=== PATIENT | male | born 1975 | race Caucasian/White ===

== ENCOUNTER → 2016-09-02 | Outpatient (REF) | payer OTHER ==
[2016-09-02 12:24] LABS: ALBUMIN 4.2 GM/DL (3.2-5.2); ALBUMIN/GLOBULIN RATIO 1.31 (1.00-1.93); ALKALINE PHOSPHATASE 71 U/L (45-117); ALT/SGPT 33 U/L (12-78); ANION GAP 13 MEQ/L (8-16); AST/SGOT 21 U/L (15-37); BILIRUBIN,TOTAL 0.8 MG/DL (0.2-1.0); BLOOD UREA NITROGEN 12 MG/DL (7-18); CALCIUM LEVEL 9.1 MG/DL (8.5-10.1); CARBON DIOXIDE LEVEL 25 MEQ/L (21-32); CHLORIDE LEVEL 102 MEQ/L (98-107); CHOLESTEROL LEVEL 113 MG/DL (<200); CREATININE FOR GFR 0.95 MG/DL (0.70-1.30); GLOMERULAR FILTRATION RATE > 60.0 (>60); GLUCOSE, FASTING 100 MG/DL (70-105); POTASSIUM SERUM 3.7 MEQ/L (3.5-5.1); SODIUM LEVEL 140 MEQ/L (136-145); TOTAL PROTEIN 7.4 GM/DL (6.4-8.2); TRIGLYCERIDES LEVEL 218 MG/DL (<150)
== END ==
LOC: M SFHCPLAZ 07:53
PROVIDERS: ATTEND Physician Assistant
DX: R73.9 Hyperglycemia, unspecified (principal); E78.4 Other hyperlipidemia

== ENCOUNTER → 2017-09-23 | Outpatient (REF) | payer OTHER ==
[2017-09-23 11:04] LABS: BASO # 0.1 10^3/uL (0.0-0.2); BASO % 0.6 % (0.0-1.0); EOS # 0.3 10^3/uL (0.0-0.50); EOS % 2.9 % (0.0-3.0); HEMATOCRIT 47.3 % (42.0-52.0); HEMOGLOBIN 15.7 g/dl (14.0-18.0); IMMATURE GRANULOCYTE % 0.8 % (0-3.0); LYMPH % 21.6 % (24.0-44.0); MEAN CORPUSCULAR HEMOGLOBIN 26.8 pg (27.0-33.0); MEAN CORPUSCULAR HGB CONC 33.2 g/dl (32.0-36.5); MEAN CORPUSCULAR VOLUME 80.7 fl (80.0-96.0); MONO # 0.8 10^3/uL (0.0-0.8); MONO % 8.2 % (0.0-5.0); NEUTROPHILS # 6.2 10^3/uL (1.8-7.7); NEUTROPHILS % 65.9 % (36.0-66.0); PLATELET COUNT, AUTOMATED 268 10^3/uL (150-450); RED BLOOD COUNT 5.86 10^6/uL (4.30-6.10); RED CELL DISTRIBUTION WIDTH 13.6 % (11.5-14.5); WHITE BLOOD COUNT 9.3 10^3/uL (4.0-10.0)
[2017-09-23 11:13] LABS: ALBUMIN 4.3 GM/DL (3.2-5.2); ALBUMIN/GLOBULIN RATIO 1.43 (1.00-1.93); ALKALINE PHOSPHATASE 80 U/L (45-117); ALT/SGPT 48 U/L (12-78); ANION GAP 12 MEQ/L (8-16); AST/SGOT 29 U/L (7-37); BILIRUBIN,TOTAL 0.8 MG/DL (0.2-1.0); BLOOD UREA NITROGEN 13 MG/DL (7-18); CALCIUM LEVEL 9.4 MG/DL (8.5-10.1); CARBON DIOXIDE LEVEL 25 MEQ/L (21-32); CHLORIDE LEVEL 101 MEQ/L (98-107); CHOLESTEROL LEVEL 112 MG/DL (<200); CHOLESTEROL RISK RATIO 3.612 (<5); CREATININE FOR GFR 0.81 MG/DL (0.70-1.30); FREE T4 0.88 NG/DL (0.76-1.46); GLOMERULAR FILTRATION RATE > 60.0 (>60); GLUCOSE, FASTING 110 MG/DL (70-100); HDL CHOLESTEROL 31 MG/DL (>40); LDL CHOLESTEROL 34.2 MG/DL (<100); NON-HDL-C 81 MG/DL; POTASSIUM SERUM 3.7 MEQ/L (3.5-5.1); SODIUM LEVEL 138 MEQ/L (136-145); TOTAL PROTEIN 7.3 GM/DL (6.4-8.2); TRIGLYCERIDES LEVEL 234 MG/DL (<150)
[2017-09-23 11:29] LABS: ESTIMATED AVERAGE GLUCOSE 137 MG/DL (60-110); HEMOGLOBIN A1c 6.4 %
== END ==
LOC: M SFHCPLAZ 08:54
DX: E78.4 Other hyperlipidemia (principal); I10 Essential (primary) hypertension; R73.03 Prediabetes
CPT/HCPCS: 84443

== ENCOUNTER → 2017-09-29 | Outpatient (REF) | payer OTHER ==
[2017-09-29 16:14] LABS: MALB URINE SIEMENS 54.4 MG/L; MAU/CREAT RATIO 49.9 MCG/MG (0.0-30.0)
== END ==
LOC: M SFHCPLAZ 15:20
DX: R73.03 Prediabetes (principal)

== ENCOUNTER → 2018-01-03 | Outpatient (REF) | payer OTHER ==
[2018-01-03 19:51] LABS: ESTIMATED AVERAGE GLUCOSE 134 MG/DL (60-110); HEMOGLOBIN A1c 6.3 %
[2018-01-03 19:55] LABS: ANION GAP 10 MEQ/L (8-16); BLOOD UREA NITROGEN 19 MG/DL (7-18); CALCIUM LEVEL 9.7 MG/DL (8.5-10.1); CARBON DIOXIDE LEVEL 27 MEQ/L (21-32); CHLORIDE LEVEL 104 MEQ/L (98-107); CREATININE FOR GFR 1.05 MG/DL (0.70-1.30); GLOMERULAR FILTRATION RATE > 60.0 (>60); GLUCOSE, FASTING 109 MG/DL (70-100); POTASSIUM SERUM 3.9 MEQ/L (3.5-5.1); SODIUM LEVEL 141 MEQ/L (136-145)
[2018-01-03 20:41] LABS: MALB URINE SIEMENS 80.6 MG/L; MAU/CREAT RATIO 42.6 MCG/MG (0.0-30.0)
== END ==
LOC: M SFHCPLAZ 15:06
DX: R73.03 Prediabetes (principal); I10 Essential (primary) hypertension

== ENCOUNTER → 2018-04-06 | Outpatient (REF) | payer OTHER ==
[2018-04-06 18:52] LABS: ESTIMATED AVERAGE GLUCOSE 131 MG/DL (60-110); HEMOGLOBIN A1c 6.2 %
== END ==
LOC: M SFHCPLAZ 15:03
DX: R73.03 Prediabetes (principal)

== ENCOUNTER → 2018-10-20 | Outpatient (REF) | payer OTHER ==
[2018-10-20 14:11] LABS: HEMATOCRIT 48.1 % (42.0-52.0); HEMOGLOBIN 15.8 g/dl (13.5-17.5); MEAN CORPUSCULAR HEMOGLOBIN 26.8 pg (27.0-33.0); MEAN CORPUSCULAR HGB CONC 32.8 g/dl (32.0-36.5); MEAN CORPUSCULAR VOLUME 81.5 fl (80.0-96.0); PLATELET COUNT, AUTOMATED 303 10^3/uL (150-450); WHITE BLOOD COUNT 10.3 10^3/uL (4.0-10.0)
[2018-10-20 14:19] LABS: ALBUMIN 4.4 GM/DL (3.2-5.2); ALT/SGPT 50 U/L (12-78); BILIRUBIN,TOTAL 0.7 MG/DL (0.2-1.0); BLOOD UREA NITROGEN 18 MG/DL (7-18); CALCIUM LEVEL 9.5 MG/DL (8.5-10.1); CARBON DIOXIDE LEVEL 26 MEQ/L (21-32); CHLORIDE LEVEL 101 MEQ/L (98-107); CHOLESTEROL LEVEL 124 MG/DL (<200); CHOLESTEROL RISK RATIO 3.875 (<5); GLOMERULAR FILTRATION RATE > 60.0 (>60); GLUCOSE, FASTING 133 MG/DL (70-100); HDL CHOLESTEROL 32 MG/DL (>40); LDL CHOLESTEROL 58 MG/DL (<100); NON-HDL-C 92 MG/DL; POTASSIUM SERUM 3.8 MEQ/L (3.5-5.1); SODIUM LEVEL 137 MEQ/L (136-145); TRIGLYCERIDES LEVEL 171 MG/DL (<150); VITAMIN B12 LEVEL 207 PG/ML (247-911)
[2018-10-20 16:27] LABS: HEMOGLOBIN A1c 6.9 %
== END ==
LOC: M LABDRAW1 13:32
PROVIDERS: ATTEND Physician Assistant
DX: R73.03 Prediabetes (principal); E78.49 Other hyperlipidemia

== ENCOUNTER → 2019-05-16 | Outpatient (REF) | payer OTHER ==
[2019-05-16 18:50] LABS: ALBUMIN 4.3 GM/DL (3.2-5.2); ALT/SGPT 69 U/L (12-78); BILIRUBIN,TOTAL 0.5 MG/DL (0.2-1.0); BLOOD UREA NITROGEN 18 MG/DL (7-18); CARBON DIOXIDE LEVEL 26 MEQ/L (21-32); CHLORIDE LEVEL 101 MEQ/L (98-107); CREATININE FOR GFR 0.92 MG/DL (0.70-1.30); GLOMERULAR FILTRATION RATE > 60.0 (>60); GLUCOSE, FASTING 138 MG/DL (70-100); POTASSIUM SERUM 3.7 MEQ/L (3.5-5.1); SODIUM LEVEL 136 MEQ/L (136-145); TOTAL PROTEIN 7.9 GM/DL (6.4-8.2)
[2019-05-16 18:56] LABS: HEMOGLOBIN A1c 7.6 %
== END ==
LOC: M SFHCPLAZ 15:29
PROVIDERS: ATTEND Nurse Practitioner Adult Health
DX: I10 Essential (primary) hypertension (principal)

== ENCOUNTER → 2019-10-14 | Outpatient (CLI) | payer OTHER | LOC: M SLEEP 20:00 | PROVIDERS: ATTEND Internal Medicine Pulmonary Disease | DX: G47.33 Obstructive sleep apnea (adult) (pediatric) (principal) ==

== ENCOUNTER 2020-04-12 20:49 | Inpatient (IN) | payer OTHER ==
[~2020-04-12] VITALS: Ht 182.9 cm; Wt 134.9 kg
[2020-04-12] MEDS ORDERED: KEFL500C17 PO (20:58)
[2020-04-12] MEDS ORDERED: IBUP80TA PO (20:58)
[2020-04-12] MEDS ORDERED: B-12100010 PO (20:58)
[2020-04-12] MEDS ORDERED: CHLO25TA PO (20:58)
[2020-04-12] MEDS ORDERED: IRBE150T7 PO (20:58)
[2020-04-12] MEDS ORDERED: CRES40TA PO (20:58)
[2020-04-12] MEDS ORDERED: GLIP5TAB20 PO (20:58)
[2020-04-12] MEDS ORDERED: NS 1,000 ML IV ONE (21:30)
[2020-04-12 21:51] LABS: VENOUS BASE EXCESS -4.7 (-2.0-2.0); VENOUS O2 SATURATION 97.7 % (60.0-80.0); VENOUS PARTIAL PRESSURE CO2 27.9 mmHg (38.0-50.0); VENOUS PARTIAL PRESSURE O2 96.2 mmHg (30.0-50.0); VENOUS PH 7.428 UNITS (7.330-7.430); VENOUS STANDARD HCO3 20.6 MEQ/L; VENOUS TOTAL CO2 18.9 MEQ/L (24.0-28.0)
[2020-04-12 22:11] LABS: BASO # 0.1 10^3/uL (0.0-0.2); BASO % 0.8 % (0.0-1.0); EOS # 0.2 10^3/uL (0.0-0.5); EOS % 1.3 % (0.0-3.0); HEMATOCRIT 43.5 % (42.0-52.0); HEMOGLOBIN 15.1 g/dl (13.5-17.5); LYMPH % 15.9 % (24.0-44.0); MEAN CORPUSCULAR HEMOGLOBIN 27.2 pg (27.0-33.0); MEAN CORPUSCULAR HGB CONC 34.7 g/dl (32.0-36.5); MEAN CORPUSCULAR VOLUME 78.4 fl (80.0-96.0); MONO # 0.9 10^3/uL (0.0-0.8); MONO % 7.4 % (0.0-5.0); NEUTROPHILS # 9.3 10^3/uL (1.5-8.5); NEUTROPHILS % 73.3 % (36.0-66.0); PLATELET COUNT, AUTOMATED 314 10^3/uL (150-450); RED BLOOD COUNT 5.55 10^6/uL (4.30-6.10); WHITE BLOOD COUNT 12.6 10^3/uL (4.0-10.0)
[2020-04-12 22:12] LABS: OSMOLALITY SERUM 300 MOSM/KG (275-295)
[2020-04-12 22:30] LABS: HEMOGLOBIN A1c 13.4 %
[2020-04-12 22:31] LABS: ACETONE/KETONE > 46.00 MG/DL (<2.81); BLOOD UREA NITROGEN 15 MG/DL (7-18); CALCIUM LEVEL 9.6 MG/DL (8.5-10.1); CARBON DIOXIDE LEVEL 19 MEQ/L (21-32); CHLORIDE LEVEL 91 MEQ/L (98-107); CREATININE FOR GFR 0.93 MG/DL (0.70-1.30); GLOMERULAR FILTRATION RATE > 60.0 (>60); GLUCOSE, FASTING 441 MG/DL (70-100); POTASSIUM SERUM 3.2 MEQ/L (3.5-5.1); SODIUM LEVEL 128 MEQ/L (136-145)
[2020-04-12] MEDS ORDERED: HumuLIN R (REGULAR) INSULIN (NovoLIN R) **100U/ML** PER UNIT IV STA (23:07)
[2020-04-12] MEDS ORDERED: POTASSIUM CHLORIDE 10 MEQ SR TABLET PO ONE (23:15)
[2020-04-13] MEDS ORDERED: HumaLOG INSULIN (NovoLOG) PER UNIT SC ONE (00:15)
[2020-04-13] MEDS ORDERED: ACETAMINOPHEN TAB 650MG DOSE (2X325MG) PO PRN (00:30)
[2020-04-13] MEDS ORDERED: GLUCAGON INJ 1MG VIAL SC PRN (00:30)
[2020-04-13] MEDS ORDERED: MAALOX 30 ML SUSP *UDC PO PRN (00:30)
[2020-04-13] MEDS ORDERED: MOM 30ML SUSPENSION UDC PO PRN (00:30)
[2020-04-13] MEDS ORDERED: GLUCOSE 4GM CHEW TABLET PO PRN (00:30)
[2020-04-13] MEDS ORDERED: POTASSIUM CHL PWD 20 MEQ PACKET PO ONE (00:30)
[2020-04-13] MEDS ORDERED: DEXTROSE 50% 50 ML SYRINGE IV PRN (00:30)
--- NOTE | 2020-04-13 00:53 | HPEPDOC ---
[facility] Medical History & Physical Date of Admission Apr 13, 2020 Date of Service: Apr 13, 2020 Primary Care Physician: Guerline Richard Attending Physician: EJ MEYER MD History and Physical TIME OF SERVICE: 125AM CHIEF COMPLAINT: high glucose HISTORY OF PRESENT ILLNESS: This 44 yr old M has been feeling thirsty and urinating a lot therefore he decided to check his serum glucose and noticed that it was about 325 which prompted him to come to the hospital for evaluation. He doesn't usually keep track of his serum glucose. He is on glipizide for DM and no longer takes metformin because of diarrhea. He denies having f/c/n/v/d or chest pain. He is also c/o a yeast infection and is on cephalexin for a pilonidal cysts which he has had for 2-3 weeks. He denies having any pain associated with the cyst and hasn't undergone I&D because cyst drained on its own. He has an appointment to f/u on the cyst on May 05. REVIEW OF SYSTEMS: 12 point review of systems negative except as listed in HPI PAST MEDICAL/ SURGICAL HISTORY: NIDDM Chronic HTN Dyslipidemia Obesity Appendectomy SOCIAL HISTORY: - tobacco / drinks occasionally (less than 1 drink per month) / - recreational drugs FAMILY HISTORY: Prostate cancer Diabetes CAD Lung cancer ALLERGIES: Please see below. HOME MEDICATIONS: Please see below. PHYSICAL EXAMINATION: Vital Signs Date Time Temp Pulse Resp B/P (MAP) Pulse Ox O2 Delivery O2 Flow Rate FiO2 04/12/20 20:50 98.0 136 16 141/86 (104) 98 04/12/20 22:15 Room Air GEN: obese / well developed/ NAD INTEGUMENT: not flushed/ not jaundice HEENT: lips acyanotic /mucus membranes dry and pink CVS: RRR/NMRG LUNGS: able to speak full sentences without stopping to take a breath / no coughing / lungs are clear to auscultation bilaterally on room air ABDOMEN: Contour (obese MSK/EXTREMITIES: NCAT / range of motion intact in all 4 extremities NEURO: CN 2-12 are grossly intact / speech is not dysarthric PSYCH: alert and oriented to person place and time/ able to understand and follow all commands LABORATORY DATA: 04/12/20 21:39 04/12/20 21:36: Bedside Glucose (Misc Panel) 469H 04/12/20 21:39: Immature Granulocyte % (Auto) 1.3, Neutrophils (%) (Auto) 73.3H, Lymphocytes (%) (Auto) 15.9L, Monocytes (%) (Auto) 7.4H, Eosinophils (%) (Auto) 1.3, Basophils (%) (Auto) 0.8, Neutrophils # (Auto) 9.3H, Lymphocytes # (Auto) 2.0, Monocytes # (Auto) 0.9H, Eosinophils # (Auto) 0.2, Basophils # (Auto) 0.1, Nucleated Red Blood Cells % (auto) 0.0, Blood Gas Bicarbonate Standard 20.6, Venous Blood pH 7.428, Venous Blood Partial Pressure CO2 27.9L, Venous Blood Partial Pressure O2 96.2H, Venous Blood Total Carbon Dioxide 18.9L, Venous Blood HCO3 18.0L, Venous Blood Oxygen Saturation 97.7H, Venous Blood Base Excess -4.7L, Anion Gap 18H, Glomerular Filtration Rate > 60.0, Estimated Mean Plasma Glucose 338H, Hemoglobin A1c 13.4, Osmolality 300H, Calcium Level 9.6, B-Hydroxybutyrate > 46.00H 04/12/20 21:56: Urine Color STRAW, Urine Appearance CLEAR, Urine pH 5.0, Urine Specific [place] 1.027, Urine Protein 1+H, Urine Glucose (UA) 3+H, Urine Ketones 2+H, Urine Blood 1+H, Urine Nitrite NEGATIVE, Urine Bilirubin NEGATIVE, Urine Urobilinogen 0.2, Urine Leukocyte Esterase NEGATIVE, Urine WBC (Auto) 1, Urine RBC (Auto) 7H, Urine Hyaline Casts (Auto) 0, Urine Bacteria (Auto) NEGATIVE, Urine Squamous Epithelial Cells 0, Urine Sperm (Auto) 04/12/20 22:41: Bedside Glucose (Misc Panel) 415H 04/12/20 23:53: Bedside Glucose (Misc Panel) 369H IMAGING: n/a MICROBIOLOGY: blood cx pending ASSESSMENT: is a 44 yr old w a hx of DM2 (A1C 13.4%), HTN, Dyslipidemia, and Obesity who will be admitted for management of uncontrolled DM. PLAN: 1. Uncontrolled DM Despite having a serum glucose >250 and BHB, he doesn't meet DKA criteria because his pH >7.30. He is not in HHS Since his A1C is >8.5% he should be started on long and short acting insulin Plan: admit to PCU / f/u repeat BMP, Mag, Phosph, and lipase / c/w IVF / d iabetic diet / f/u accuchecks Q4H / hypoglycemia protocol / sliding scale insulin / hold oral anti-glycemics / based on his weight of 133kg he should be started on 33 units of long acting insulin daily along with 33 units of short acting insulin divided 3 times a day with his meals, since he is insulin naive I will order 21 units of levemir (long acting) daily + 7 units of lispro w meals 3 times a day, the day time team can titrate his insulin as needed / he will also need education on how to inject insulin before discharge 2. Reactive SIRS vs Sepsis 2/2 ? SIRS criteria include tachycardia and leukocytosis UA and chest xray are unrevealing Plan: f/u lactic acid, and blood cx 3. Pilonidal Cysts Plan: switch from PO cephalexin to IV clindamycin & f/u wound cx 4. Yeast infection Plan: topical nystatin 5. Chronic HTN Plan: c/w Irbesartan and chlorthalidone 6. Dyslipidemia Plan: rosuvastatin 7. Class III Obesity BMI of 40 complicates care Since the patients BMI >35 with co-existing DM s/he is a candidate for bariatric surgery Plan: the pt can f/u w his or her PCP for sleep apnea screening, traffic analyst consult & referral to a Bariatric Surgeon / recommend cardiovascular exercise for 40 min 4-5 days a week DVT PROPHYLAXIS: lovenox DISPOSITION: likely home after more than 2 midnight's stay Home Medications Scheduled Cephalexin (Keflex) 500 Mg Capsule, 1,000 MG PO BID STARTED 04/08/20 X 10 DAYS Chlorthalidone (Chlorthalidone) 25 Mg Tablet, 25 MG PO DAILY Cyanocobalamin (Vitamin B-12) (Vitamin B-12) 1,000 Mcg Capsule, 1,000 MCG PO DAILY Glipizide (Glipizide ER) 5 Mg Tab.er.24, 5 MG PO DAILY Ibuprofen (Ibuprofen) 800 Mg Tablet, 800 MG PO TID for pain Irbesartan (Irbesartan) 150 Mg Tablet, 150 MG PO DAILY Rosuvastatin Calcium (Crestor) 40 Mg Tablet, 40 MG PO DAILY Allergies Coded Allergies: No Known Allergies (Verified , 01/14/03) A-FIB/CHADSVASC A-FIB History Current/History of A-Fib/PAF?: No Current PO Anticoag Therapy: No EJ MEYER MD Apr 13, 2020 00:53
[2020-04-13] MEDS: HumaLOG INSULIN (NovoLOG) PER UNIT SC SCH ×6 (01:31→20:27)
[2020-04-13] MEDS ORDERED: NYSTATIN 100,000 UNITS/GM TOPICAL PWD 15 GM TOP PRN (02:00)
[2020-04-13 02:19] LABS: BLOOD UREA NITROGEN 13 MG/DL (7-18); CALCIUM LEVEL 8.9 MG/DL (8.5-10.1); CARBON DIOXIDE LEVEL 22 MEQ/L (21-32); CHLORIDE LEVEL 97 MEQ/L (98-107); CREATININE FOR GFR 0.84 MG/DL (0.70-1.30); GLOMERULAR FILTRATION RATE > 60.0 (>60); GLUCOSE, FASTING 319 MG/DL (70-100); LIPASE 138 U/L (73-393); MAGNESIUM LEVEL 1.8 MG/DL (1.8-2.4); PHOSPHORUS LEVEL 2.8 MG/DL (2.5-4.9); POTASSIUM SERUM 2.9 MEQ/L (3.5-5.1); SODIUM LEVEL 134 MEQ/L (136-145)
[2020-04-13 02:20] VITALS: BP 126/72
[2020-04-13] MEDS: NS 1,000 ML IV SCH ×4 (02:30→17:22)
[2020-04-13] MEDS: CLINDAMYCIN 900 MG in IV 1 EA IV SCH ×2 (02:48→09:13)
[2020-04-13] MEDS: POTASSIUM CHLORIDE 10 MEQ SR TABLET PO SCH ×2 (03:49→04:43)
[2020-04-13 04:00] VITALS: BP 137/57
--- NOTE | 2020-04-13 05:54 | ECGEPIP ---
[facility] - ED Test Date: 2020-04-12 Pat Name: SARAH HARRIS Department: Room: - Gender: Male Feather Baler: ADENIKE : 1975 Requested By: NAVJOT Shepherd Order Number: [id number] Reading MD: Kevin Quinones Measurements Intervals [place] Rate: 123 P: 45 W[place]: 145 QRS: -12 QRSD: 103 T: 28 QT: 378 QTc: 543 Interpretive Statements SINUS TACHYCARDIA INDETERMINATE AXIS PATTERN CONSISTENT WITH PULMONARY DISEASE POOR R WAVE PROGRESSION MODERATE INTRAVENTRICULAR CONDUCTION DELAY NO PRIORS FOR COMPARISON Electronically Signed on 04-13-2020 5:53:38 EDT by Kevin Quinones
[2020-04-13 06:32] LABS: BASO # 0.1 10^3/uL (0.0-0.2); BASO % 0.7 % (0.0-1.0); EOS # 0.4 10^3/uL (0.0-0.5); EOS % 3.8 % (0.0-3.0); HEMATOCRIT 39.8 % (42.0-52.0); HEMOGLOBIN 13.6 g/dl (13.5-17.5); LYMPH # 2.5 10^3/uL (1.5-5.0); LYMPH % 24.8 % (24.0-44.0); MEAN CORPUSCULAR HEMOGLOBIN 27.2 pg (27.0-33.0); MEAN CORPUSCULAR HGB CONC 34.2 g/dl (32.0-36.5); MEAN CORPUSCULAR VOLUME 79.6 fl (80.0-96.0); MONO # 0.8 10^3/uL (0.0-0.8); MONO % 8.2 % (0.0-5.0); NEUTROPHILS # 6.3 10^3/uL (1.5-8.5); NEUTROPHILS % 61.5 % (36.0-66.0); PLATELET COUNT, AUTOMATED 255 10^3/uL (150-450); WHITE BLOOD COUNT 10.2 10^3/uL (4.0-10.0)
[2020-04-13 07:14] LABS: ALBUMIN 3.1 GM/DL (3.2-5.2); ALT/SGPT 29 U/L (12-78); BILIRUBIN,TOTAL 0.4 MG/DL (0.2-1.0); BLOOD UREA NITROGEN 11 MG/DL (7-18); CALCIUM LEVEL 8.6 MG/DL (8.5-10.1); CARBON DIOXIDE LEVEL 26 MEQ/L (21-32); CHLORIDE LEVEL 99 MEQ/L (98-107); CREATININE FOR GFR 0.78 MG/DL (0.70-1.30); GLOMERULAR FILTRATION RATE > 60.0 (>60); GLUCOSE, FASTING 249 MG/DL (70-100); POTASSIUM SERUM 2.9 MEQ/L (3.5-5.1); SODIUM LEVEL 134 MEQ/L (136-145); TOTAL PROTEIN 6.6 GM/DL (6.4-8.2)
[2020-04-13 08:00] VITALS: BP 133/74
[2020-04-13] MEDS ORDERED: HumaLOG INSULIN (NovoLOG) PER UNIT SC SCH (08:00)
[2020-04-13] MEDS: ROSUVASTATIN 10 MG TAB (CRESTOR) PO SCH (08:17)
[2020-04-13] MEDS: ENOXAPARIN 40MG/0.4ML SYRINGE (J1650 PER 10MG) SC SCH (08:19)
[2020-04-13] MEDS: IRBESARTAN 150MG TAB PO SCH (08:21)
[2020-04-13] MEDS ORDERED: glipiZIDE XL 5 MG TABCR PO SCH (09:00)
[2020-04-13] MEDS ORDERED: CHLORTHALIDONE 25 MG TAB PO SCH (09:00)
[2020-04-13] MEDS ORDERED: LEVEMIR (INSULIN DETEMIR) 1 UNITS/0.01ML SC SCH (09:00)
[2020-04-13] MEDS ORDERED: POTASSIUM CHLORIDE 10 MEQ SR TABLET PO ONE ×2 (09:00→17:00)
--- NOTE | 2020-04-13 10:47 | IPNPDOC ---
Text Note Date of Service The patient was seen on 04/13/20. NOTE No acute changes overnight. Pilonidol cyst healed and pt completed >10 days abx. Has fungal infection of penis within uncircumcised region. Start fluconazole. Cont insulin. replace K. VS,Fishbone, I+O VS, Fishbone, I+O Laboratory Tests 04/12/20 21:39 04/13/20 01:38 04/13/20 06:06 Vital Signs Date Time Temp Pulse Resp B/P (MAP) Pulse Ox O2 Delivery O2 Flow Rate FiO2 04/13/20 08:21 133/74 04/13/20 08:00 97.9 103 18 96 Room Air I&O- Last 24 Hours up to 6 AM 04/13/20 06:00 Intake Total 3800 ml Output Total 2320 ml Balance 1480 ml LINDA JACKSON MD Apr 13, 2020 10:47
[2020-04-13] MEDS: FLUCONAZOLE 100 MG TAB PO SCH (11:04)
[2020-04-13 12:00] VITALS: BP 135/73
[2020-04-13 15:35] LABS: BLOOD UREA NITROGEN 10 MG/DL (7-18); CALCIUM LEVEL 8.9 MG/DL (8.5-10.1); CARBON DIOXIDE LEVEL 23 MEQ/L (21-32); CHLORIDE LEVEL 99 MEQ/L (98-107); CREATININE FOR GFR 0.64 MG/DL (0.70-1.30); GLOMERULAR FILTRATION RATE > 60.0 (>60); GLUCOSE, FASTING 309 MG/DL (70-100); MAGNESIUM LEVEL 1.8 MG/DL (1.8-2.4); PHOSPHORUS LEVEL 1.8 MG/DL (2.5-4.9); POTASSIUM SERUM 3.3 MEQ/L (3.5-5.1); SODIUM LEVEL 133 MEQ/L (136-145)
[2020-04-13 16:00] VITALS: BP 140/94
[2020-04-13] MEDS ORDERED: NS 1,000 ML IV ONE ×2 (16:00)
[2020-04-13] MEDS ORDERED: LEVEMIR (INSULIN DETEMIR) 1 UNITS/0.01ML SC ONE (16:00)
[2020-04-13] MEDS: NEUTRA-PHOS 1.5 GM PACKET PO SCH ×2 (16:24→20:27)
[2020-04-13 20:00] VITALS: BP 124/82
[2020-04-14] VITALS: BP 135/70
[2020-04-14] MEDS: HumaLOG INSULIN (NovoLOG) PER UNIT SC SCH ×6 (01:21→20:45)
[2020-04-14] MEDS: NS 1,000 ML IV SCH ×2 (01:21→01:25)
[2020-04-14 04:00] VITALS: BP 116/65
[2020-04-14 05:31] LABS: HEMATOCRIT 38.2 % (42.0-52.0); HEMOGLOBIN 12.9 g/dl (13.5-17.5); MEAN CORPUSCULAR HEMOGLOBIN 27.4 pg (27.0-33.0); MEAN CORPUSCULAR HGB CONC 33.8 g/dl (32.0-36.5); MEAN CORPUSCULAR VOLUME 81.1 fl (80.0-96.0); PLATELET COUNT, AUTOMATED 240 10^3/uL (150-450); RED BLOOD COUNT 4.71 10^6/uL (4.30-6.10); WHITE BLOOD COUNT 7.6 10^3/uL (4.0-10.0)
[2020-04-14 05:55] LABS: BLOOD UREA NITROGEN 7 MG/DL (7-18); C REACTIVE PROTEIN QUANTITATIV 0.47 MG/DL (0.00-0.30); CALCIUM LEVEL 8.1 MG/DL (8.5-10.1); CARBON DIOXIDE LEVEL 26 MEQ/L (21-32); CHLORIDE LEVEL 100 MEQ/L (98-107); CREATININE FOR GFR 0.62 MG/DL (0.70-1.30); GLOMERULAR FILTRATION RATE > 60.0 (>60); GLUCOSE, FASTING 238 MG/DL (70-100); MAGNESIUM LEVEL 1.8 MG/DL (1.8-2.4); POTASSIUM SERUM 2.8 MEQ/L (3.5-5.1); SODIUM LEVEL 136 MEQ/L (136-145)
[2020-04-14 08:00] VITALS: BP 144/83
[2020-04-14] MEDS ORDERED: POTASSIUM CHLORIDE 10 MEQ SR TABLET PO ONE ×2 (08:00→11:00)
[2020-04-14] MEDS: IRBESARTAN 150MG TAB PO SCH (09:02)
[2020-04-14] MEDS: FLUCONAZOLE 100 MG TAB PO SCH (09:02)
[2020-04-14] MEDS: ROSUVASTATIN 10 MG TAB (CRESTOR) PO SCH (09:02)
[2020-04-14] MEDS: ENOXAPARIN 40MG/0.4ML SYRINGE (J1650 PER 10MG) SC SCH (09:04)
[2020-04-14] MEDS: LEVEMIR (INSULIN DETEMIR) 1 UNITS/0.01ML SC SCH (09:04)
[2020-04-14] MEDS: NEUTRA-PHOS 1.5 GM PACKET PO SCH (09:04)
[2020-04-14 12:00] VITALS: BP 143/70
[2020-04-14] MEDS ORDERED: LANTINJ4 SC (13:55)
--- NOTE | 2020-04-14 14:08 | IPNPDOC ---
Text Note Date of Service The patient was seen on 04/14/20. NOTE GEN: obese / well developed/ NAD INTEGUMENT: not flushed/ not jaundice HEENT: lips acyanotic /mucus membranes dry and pink CVS: RRR/NMRG LUNGS: able to speak full sentences without stopping to take a breath / no coughing / lungs are clear to auscultation bilaterally on room air ABDOMEN: Contour (obese MSK/EXTREMITIES: NCAT / range of motion intact in all 4 extremities NEURO: CN 2-12 are grossly intact / speech is not dysarthric PSYCH: alert and oriented to person place and time/ able to understand and follow all commands Genitals: Penile fungal infection at the uncircumcised region. Pilonidal cyst infection healed. Non tender. no erythema. no drainage. ASSESSMENT: is a 44 yr old w a hx of DM2 (A1C 13.4%), HTN, Dyslipidemia, and Obesity who will be admitted for management of uncontrolled DM. PLAN: 1. Uncontrolled DM Despite having a serum glucose >250 and BHB, he doesn't meet DKA criteria because his pH >7.30. He is not in HHS Since his A1C is >13% - Levemir 35U daily - Does not want to take insulin with meals. - Agreeable to once daily insulin and will f/u with PCP 2. Hypokalemia - replace with potassium chloride 40meq po x2 3. Yeast infection- penile Plan: on fluconazole 4. Chronic HTN Plan: c/w Irbesartan / d/c chlorthalidone given hypokalemia 5. Dyslipidemia Plan: rosuvastatin 6. Class III Obesity BMI of 40 complicates care Since the patients BMI >35 with co-existing DM s/he is a candidate for bariatric surgery Plan: the pt can f/u w his or her PCP for sleep apnea screening, flooring machine feeder consult & referral to a Bariatric Surgeon / recommend cardiovascular exercise for 40 min 4-5 days a week 7. Pilonidal Cyst - infecrtion resolved. Completed >10 days abx DVT PROPHYLAXIS: lovenox VS,Fishbone, I+O VS, Fishbone, I+O Laboratory Tests 04/13/20 14:41 04/14/20 04:42 Vital Signs Date Time Temp Pulse Resp B/P (MAP) Pulse Ox O2 Delivery O2 Flow Rate FiO2 04/14/20 12:00 96.7 88 16 143/70 (94) 97 Room Air I&O- Last 24 Hours up to 6 AM 04/14/20 06:00 Intake Total 6630 ml Output Total 3600 ml Balance 3030 ml LINDA JACKSON MD Apr 14, 2020 14:08
[2020-04-14 16:00] VITALS: BP 154/100
[2020-04-14 16:13] LABS: BLOOD UREA NITROGEN 8 MG/DL (7-18); CALCIUM LEVEL 9.1 MG/DL (8.5-10.1); CARBON DIOXIDE LEVEL 27 MEQ/L (21-32); CHLORIDE LEVEL 99 MEQ/L (98-107); GLOMERULAR FILTRATION RATE > 60.0 (>60); GLUCOSE, FASTING 356 MG/DL (70-100); POTASSIUM SERUM 3.4 MEQ/L (3.5-5.1); SODIUM LEVEL 134 MEQ/L (136-145)
[2020-04-14 20:00] VITALS: BP 150/87
[2020-04-15] VITALS: BP 140/74
[2020-04-15] MEDS: HumaLOG INSULIN (NovoLOG) PER UNIT SC SCH ×4 (00:15→12:02)
[2020-04-15 04:00] VITALS: BP 141/87
[2020-04-15 05:27] LABS: BASO # 0.1 10^3/uL (0.0-0.2); BASO % 0.9 % (0.0-1.0); EOS # 0.4 10^3/uL (0.0-0.5); EOS % 5.5 % (0.0-3.0); HEMATOCRIT 40.4 % (42.0-52.0); HEMOGLOBIN 13.4 g/dl (13.5-17.5); LYMPH # 2.4 10^3/uL (1.5-5.0); LYMPH % 29.8 % (24.0-44.0); MEAN CORPUSCULAR HEMOGLOBIN 27.2 pg (27.0-33.0); MEAN CORPUSCULAR HGB CONC 33.2 g/dl (32.0-36.5); MEAN CORPUSCULAR VOLUME 82.1 fl (80.0-96.0); MONO # 0.7 10^3/uL (0.0-0.8); MONO % 8.2 % (0.0-5.0); NEUTROPHILS # 4.4 10^3/uL (1.5-8.5); NEUTROPHILS % 54.1 % (36.0-66.0); PLATELET COUNT, AUTOMATED 260 10^3/uL (150-450); RED BLOOD COUNT 4.92 10^6/uL (4.30-6.10)
[2020-04-15 05:48] LABS: BLOOD UREA NITROGEN 9 MG/DL (7-18); C REACTIVE PROTEIN QUANTITATIV 0.45 MG/DL (0.00-0.30); CALCIUM LEVEL 8.8 MG/DL (8.5-10.1); CARBON DIOXIDE LEVEL 28 MEQ/L (21-32); CHLORIDE LEVEL 100 MEQ/L (98-107); CREATININE FOR GFR 0.75 MG/DL (0.70-1.30); GLOMERULAR FILTRATION RATE > 60.0 (>60); GLUCOSE, FASTING 264 MG/DL (70-100); POTASSIUM SERUM 3.1 MEQ/L (3.5-5.1); SODIUM LEVEL 137 MEQ/L (136-145)
[2020-04-15 08:00] VITALS: BP 133/79
[2020-04-15] MEDS ORDERED: POTASSIUM CHLORIDE 10 MEQ SR TABLET PO ONE (08:00)
[2020-04-15] MEDS: ROSUVASTATIN 10 MG TAB (CRESTOR) PO SCH (08:50)
[2020-04-15 08:51] VITALS: BP 133/79
[2020-04-15] MEDS: FLUCONAZOLE 100 MG TAB PO SCH (08:51)
[2020-04-15] MEDS: LEVEMIR (INSULIN DETEMIR) 1 UNITS/0.01ML SC SCH (08:51)
[2020-04-15] MEDS: ENOXAPARIN 40MG/0.4ML SYRINGE (J1650 PER 10MG) SC SCH (08:51)
[2020-04-15] MEDS: IRBESARTAN 150MG TAB PO SCH (08:51)
[2020-04-15] MEDS ORDERED: LANC30MI XX (11:20)
[2020-04-15] MEDS ORDERED: BLOOKIT21 XX (11:20)
[2020-04-15] MEDS ORDERED: PEN1MIS22 SC (11:20)
[2020-04-15] MEDS ORDERED: FLUC100T PO (11:20)
[2020-04-15] MEDS ORDERED: ALCOPAD25 TOP (11:20)
[2020-04-15] MEDS ORDERED: GLUC1TES2 XX (11:20)
[2020-04-15 12:00] VITALS: BP 125/73
[2020-04-15 13:41] LABS: BLOOD UREA NITROGEN 12 MG/DL (7-18); CARBON DIOXIDE LEVEL 26 MEQ/L (21-32); CHLORIDE LEVEL 97 MEQ/L (98-107); CREATININE FOR GFR 0.78 MG/DL (0.70-1.30); GLOMERULAR FILTRATION RATE > 60.0 (>60); GLUCOSE, FASTING 319 MG/DL (70-100); POTASSIUM SERUM 3.4 MEQ/L (3.5-5.1); SODIUM LEVEL 133 MEQ/L (136-145)
[2020-04-15] MEDS ORDERED: POTASSIUM CHLORIDE 10 MEQ SR TABLET PO SCH (21:00)
[2020-04-15] MEDS ORDERED: HumaLOG INSULIN (NovoLOG) PER UNIT SC SCH (21:00)
[2020-04-15] MEDS ORDERED: POTA10TA17 PO (21:10)
--- NOTE | 2020-04-15 21:17 | DS.PDOC ---
Discharge Summary General Date of Admission Apr 13, 2020 at 00:25 Date of Discharge 04/15/20 Discharge Summary PROCEDURES PERFORMED DURING STAY: [None]. DISCHARGE DIAGNOSES: Uncontrolled DM Hypokalemia Penile fungal infection Morbid obesity Hyperlipidemia Hypertension Pinonidal Cyst treated. COMPLICATIONS/CHIEF COMPLAINT: Hyperglycemia Due To Diabetes Mellitus. HOSPITAL COURSE: is a 44 yr old w a hx of DM2 (A1C 13.4%), HTN, Dyslipidemia, and Obesity was admitted for uncontrolled DM. Uncontrolled DM Since his A1C is >13% started on Lantus 35U daily continue on Glipizide Hypokalemia replace with potassium chloride Yeast infection- penile fluconazole Chronic HTN c/w Irbesartan, HCTZ Dyslipidemia rosuvastatin Morbid Obesity BMI of 40 complicates care Since the patients BMI >35 with co-existing DM s/he is a candidate for bariatric surgery Plan: the pt can f/u w his or her PCP for sleep apnea screening, spring manufacturing set up technician consult & referral to a Bariatric Surgeon / recommend cardiovascular exercise for 40 min 4-5 days a week Pilonidal Cyst infection resolved. Completed >10 days abx DISCHARGE MEDICATIONS: Please see below. ALLERGIES: Please see below. PHYSICAL EXAMINATION ON DISCHARGE: VITAL SIGNS: Please see below. GEN: obese / well developed/ NAD INTEGUMENT: not flushed/ not jaundice HEENT: lips acyanotic /mucus membranes dry and pink CVS: RRR/NMRG LUNGS: able to speak full sentences without stopping to take a breath / no coughing / lungs are clear to auscultation bilaterally on room air ABDOMEN: Contour (obese MSK/EXTREMITIES: NCAT / range of motion intact in all 4 extremities NEURO: CN 2-12 are grossly intact / speech is not dysarthric PSYCH: alert and oriented to person place and time/ able to understand and follow all commands Genitals: Penile fungal infection at the uncircumcised region. Pilonidal cyst infection healed. Non tender. no erythema. no drainage. LABORATORY DATA: Please see below. ACTIVITY: [As tolerated]. DIET: Carb consistent DISPOSITION: 01 Home, Self-Care. DISCHARGE INSTRUCTIONS: PMD in 1 week DISCHARGE CONDITION: [Stable]. TIME SPENT ON DISCHARGE: 35 minutes. Vital Signs/I&Os Vital Signs Date Time Temp Pulse Resp B/P (MAP) Pulse Ox O2 Delivery O2 Flow Rate FiO2 04/15/20 12:00 97.8 92 16 125/73 (90) 94 Room Air I&O- Last 24 Hours up to 6 AM 04/15/20 07:00 Intake Total 1360 ml Output Total 1650 ml Balance -290 ml Laboratory Data Labs 24H Laboratory Tests 2 04/14/20 23:48: Bedside Glucose (Misc Panel) 301H 04/15/20 03:40: Bedside Glucose (Misc Panel) 255H 04/15/20 04:47: Immature Granulocyte % (Auto) 1.5, Neutrophils (%) (Auto) 54.1, Lymphocytes (%) (Auto) 29.8, Monocytes (%) (Auto) 8.2H, Eosinophils (%) (Auto) 5.5H, Basophils (%) (Auto) 0.9, Neutrophils # (Auto) 4.4, Lymphocytes # (Auto) 2.4, Monocytes # (Auto) 0.7, Eosinophils # (Auto) 0.4, Basophils # (Auto) 0.1, Nucleated Red Blood Cells % (auto) 0.0, Anion Gap 9, Glomerular Filtration Rate > 60.0, Calcium Level 8.8, C-Reactive Protein, Quantitative 0.45H 04/15/20 11:58: Bedside Glucose (Misc Panel) 312H 04/15/20 13:05: Anion Gap 10, Glomerular Filtration Rate > 60.0, Calcium Level 10.0 CBC/BMP Laboratory Tests 04/15/20 04:47 04/15/20 13:05 FSBS Laboratory Tests Test 04/14/20 23:48 04/15/20 03:40 04/15/20 11:58 Range/Units Bedside Glucose (Misc Panel) 301 255 312 70-105 MG/DL Microbiology Microbiology 04/13/20 Gram Stain - Final, Resulted 04/13/20 Wound Culture, Resulted Pending 04/13/20 Blood Culture - Preliminary, Resulted No Growth after 48 hours. All Specime... Discharge Medications Scheduled Blood Sugar Diagnostic (Advanced Glucose Test Strips) 1 Each Strip, 1 STRIP XX ASDIRECTED Cephalexin (Keflex) 500 Mg Capsule, 1,000 MG PO BID, (Reported) STARTED 04/08/20 X 10 DAYS Chlorthalidone (Chlorthalidone) 25 Mg Tablet, 25 MG PO DAILY, (Reported) Cyanocobalamin (Vitamin B-12) (Vitamin B-12) 1,000 Mcg Capsule, 1,000 MCG PO DAILY, (Reported) Fluconazole (Fluconazole) 100 Mg Tablet, 200 MG PO DAILY Glipizide (Glipizide ER) 5 Mg Tab.er.24, 5 MG PO DAILY, (Reported) Ibuprofen (Ibuprofen) 800 Mg Tablet, 800 MG PO TID for pain, (Reported) Insulin Glargine,Hum.rec.anlog (Lantus Solostar) 100 Unit/1 Ml Insuln.pen, 35 UNITS SC QAM Irbesartan (Irbesartan) 150 Mg Tablet, 150 MG PO DAILY, (Reported) Potassium Chloride (Potassium Chloride) 10 Meq Tab.er.prt, 1 TAB PO DAILY Rosuvastatin Calcium (Crestor) 40 Mg Tablet, 40 MG PO DAILY, (Reported) Allergies Coded Allergies: No Known Allergies (Verified , 01/14/03) VANNESSA BOGGS MD Apr 15, 2020 21:16
== END 2020-04-15 14:58 | disposition home or self-care (01) | DRG 638 ==
LOC: M ED 20:49 → M ED INP 04-13 00:25 → ENRESERV 04-13 00:44 → M PCU 04-13 02:16
PROVIDERS: ADMIT Internal Medicine; ATTEND Internal Medicine Nephrology
DX: E11.65 Type 2 diabetes mellitus with hyperglycemia (principal); B37.89 Other sites of candidiasis; Z68.41 Body mass index [BMI] 40.0-44.9, adult; L05.01 Pilonidal cyst with abscess; E66.01 Morbid (severe) obesity due to excess calories; I10 Essential (primary) hypertension; E78.5 Hyperlipidemia, unspecified; E87.6 Hypokalemia; N48.29 Other inflammatory disorders of penis; Z79.899 Other long term (current) drug therapy; Z79.4 Long term (current) use of insulin

== ENCOUNTER → 2020-04-24 | Outpatient (CLI) | payer OTHER ==
[~2020-04-24] MED LIST: ALCOPAD25 TOP; B-12100010 PO; BLOOKIT21 XX; CHLO25TA PO; CRES40TA PO; FLUC100T PO; GLIP5TAB20 PO; GLUC1TES2 XX; IBUP80TA PO; IRBE150T7 PO; KEFL500C17 PO; LANC30MI XX; LANTINJ4 SC; PEN1MIS22 SC; POTA10TA17 PO
[2020-04-24 20:17] LABS: BLOOD UREA NITROGEN 24 MG/DL (7-18); CALCIUM LEVEL 9.7 MG/DL (8.5-10.1); CARBON DIOXIDE LEVEL 30 MEQ/L (21-32); CHLORIDE LEVEL 97 MEQ/L (98-107); CREATININE FOR GFR 0.96 MG/DL (0.70-1.30); GLOMERULAR FILTRATION RATE > 60.0 (>60); GLUCOSE, FASTING 159 MG/DL (70-100); POTASSIUM SERUM 3.2 MEQ/L (3.5-5.1); SODIUM LEVEL 136 MEQ/L (136-145)
[2020-04-24 20:46] LABS: HEMOGLOBIN A1c 12.5 %
== END ==
LOC: M WUC 15:48
PROVIDERS: ATTEND Nurse Practitioner Adult Health
DX: E11.9 Type 2 diabetes mellitus without complications (principal)

== ENCOUNTER → 2020-06-12 | Outpatient (CLI) | payer OTHER | LOC: M WUC 15:47 | PROVIDERS: ATTEND Nurse Practitioner Adult Health | DX: E11.9 Type 2 diabetes mellitus without complications (principal) ==

== ENCOUNTER → 2020-09-11 | Outpatient (CLI) | payer OTHER ==
[2020-09-11 11:16] LABS: ALBUMIN 4.4 GM/DL (3.2-5.2); ALT/SGPT 43 U/L (12-78); BILIRUBIN,TOTAL 0.5 MG/DL (0.2-1.0); BLOOD UREA NITROGEN 17 MG/DL (7-18); CALCIUM LEVEL 9.8 MG/DL (8.5-10.1); CARBON DIOXIDE LEVEL 30 MEQ/L (21-32); CHLORIDE LEVEL 102 MEQ/L (98-107); CHOLESTEROL LEVEL 192 MG/DL (<200); CHOLESTEROL RISK RATIO 5.647 (<5); CREATININE FOR GFR 0.91 MG/DL (0.70-1.30); GLOMERULAR FILTRATION RATE > 60.0 (>60); GLUCOSE, FASTING 124 MG/DL (70-100); HDL CHOLESTEROL 34 MG/DL (>40); LDL CHOLESTEROL 97 MG/DL (<100); NON-HDL-C 158 MG/DL; POTASSIUM SERUM 3.7 MEQ/L (3.5-5.1); SODIUM LEVEL 137 MEQ/L (136-145); TOTAL PROTEIN 7.7 GM/DL (6.4-8.2); TRIGLYCERIDES LEVEL 304 MG/DL (<150)
[2020-09-11 11:19] LABS: MAU/CREAT RATIO 119.9 MCG/MG (0.0-30.0)
[2020-09-11 13:47] LABS: HEMOGLOBIN A1c 7.1 %
== END ==
LOC: M WUC 08:40
PROVIDERS: ATTEND Nurse Practitioner Adult Health
DX: E78.2 Mixed hyperlipidemia (principal); E11.9 Type 2 diabetes mellitus without complications; I10 Essential (primary) hypertension

== ENCOUNTER → 2021-03-23 | Outpatient (CLI) | payer OTHER ==
[2021-03-23 12:41] LABS: ALBUMIN 4.1 GM/DL (3.2-5.2); ALT/SGPT 46 U/L (12-78); BILIRUBIN,TOTAL 0.7 MG/DL (0.2-1.0); BLOOD UREA NITROGEN 17 MG/DL (7-18); CALCIUM LEVEL 9.5 MG/DL (8.5-10.1); CARBON DIOXIDE LEVEL 25 MEQ/L (21-32); CHLORIDE LEVEL 101 MEQ/L (98-107); CHOLESTEROL LEVEL 139 MG/DL (<200); CHOLESTEROL RISK RATIO 3.861 (<5); CREATININE FOR GFR 0.81 MG/DL (0.70-1.30); GLOMERULAR FILTRATION RATE > 60.0 (>60); GLUCOSE, FASTING 129 MG/DL (70-100); HDL CHOLESTEROL 36 MG/DL (>40); LDL CHOLESTEROL 59 MG/DL (<100); NON-HDL-C 103 MG/DL; POTASSIUM SERUM 3.3 MEQ/L (3.5-5.1); SODIUM LEVEL 138 MEQ/L (136-145); TOTAL PROTEIN 7.2 GM/DL (6.4-8.2); TRIGLYCERIDES LEVEL 220 MG/DL (<150)
[2021-03-23 18:56] LABS: HEMOGLOBIN A1c 6.7 %
== END ==
LOC: M WUC 08:20
PROVIDERS: ATTEND Nurse Practitioner Adult Health
DX: E11.9 Type 2 diabetes mellitus without complications (principal); I10 Essential (primary) hypertension; E78.2 Mixed hyperlipidemia

== ENCOUNTER → 2021-10-15 | Outpatient (CLI) | payer OTHER ==
[~2021-10-15] MED LIST changes: -FLUC100T PO; +FLUC100T3 PO
[2021-10-15 10:04] LABS: ALT/SGPT 43 U/L (12-78); BILIRUBIN,TOTAL 0.8 MG/DL (0.2-1.0); BLOOD UREA NITROGEN 13 MG/DL (7-18); CALCIUM LEVEL 9.5 MG/DL (8.5-10.1); CARBON DIOXIDE LEVEL 29 MEQ/L (21-32); CHLORIDE LEVEL 99 MEQ/L (98-107); CREATININE FOR GFR 0.79 MG/DL (0.70-1.30); GLOMERULAR FILTRATION RATE > 60.0 (>60); GLUCOSE, FASTING 131 MG/DL (70-100); POTASSIUM SERUM 3.2 MEQ/L (3.5-5.1); SODIUM LEVEL 137 MEQ/L (136-145)
[2021-10-15 10:05] LABS: ALBUMIN 4.3 GM/DL (3.2-5.2); CHOLESTEROL LEVEL 111 MG/DL (<200); HDL CHOLESTEROL 30 MG/DL (>40); LDL CHOLESTEROL 49 MG/DL (<100); NON-HDL-C 81 MG/DL; TOTAL PROTEIN 7.2 GM/DL (6.4-8.2); TRIGLYCERIDES LEVEL 162 MG/DL (<150)
[2021-10-15 10:17] LABS: HEMOGLOBIN A1c 6.7 %
== END ==
LOC: M WUC 08:08
PROVIDERS: ATTEND Nurse Practitioner Adult Health
DX: E78.2 Mixed hyperlipidemia (principal); E11.9 Type 2 diabetes mellitus without complications; I10 Essential (primary) hypertension

== ENCOUNTER → 2022-01-19 | Outpatient (REF) | payer OTHER ==
[2022-01-19 10:46] LABS: ALBUMIN 4.2 GM/DL (3.2-5.2); ALT/SGPT 49 U/L (12-78); BILIRUBIN,TOTAL 0.7 MG/DL (0.2-1.0); BLOOD UREA NITROGEN 20 MG/DL (7-18); CALCIUM LEVEL 9.9 MG/DL (8.5-10.1); CARBON DIOXIDE LEVEL 31 MEQ/L (21-32); CHLORIDE LEVEL 99 MEQ/L (98-107); CHOLESTEROL LEVEL 129 MG/DL (<200); CHOLESTEROL RISK RATIO 3.909 (<5); CREATININE FOR GFR 0.97 MG/DL (0.70-1.30); GLOMERULAR FILTRATION RATE > 60.0 (>60); GLUCOSE, FASTING 145 MG/DL (70-100); HDL CHOLESTEROL 33 MG/DL (>40); LDL CHOLESTEROL 61 MG/DL (<100); NON-HDL-C 96 MG/DL; SODIUM LEVEL 133 MEQ/L (136-145); TOTAL PROTEIN 7.5 GM/DL (6.4-8.2); TRIGLYCERIDES LEVEL 176 MG/DL (<150)
[2022-01-19 11:53] LABS: HEMOGLOBIN A1c 6.7 %
== END ==
LOC: M WUC 08:05
PROVIDERS: ATTEND Nurse Practitioner Adult Health
DX: E11.9 Type 2 diabetes mellitus without complications (principal); I10 Essential (primary) hypertension; E78.2 Mixed hyperlipidemia

== ENCOUNTER → 2022-07-20 | Outpatient (CLI) | payer OTHER ==
[~2022-07-20] MED LIST changes: +POTA-150 PO; -POTA10TA17 PO
[2022-07-20 18:16] LABS: VITAMIN B12 LEVEL 692 PG/ML (211-911)
[2022-07-20 19:45] LABS: ALBUMIN 4.3 G/DL (3.2-5.2); ALKALINE PHOSPHATASE 82 U/L (46-116); ALT/SGPT 51 U/L (7.0-40); AST/SGOT 41 U/L (<34); BILIRUBIN,TOTAL 0.6 MG/DL (0.3-1.2); BLOOD UREA NITROGEN 17 MG/DL (9-23); CALCIUM LEVEL 9.9 MG/DL (8.5-10.1); CARBON DIOXIDE LEVEL 27 MMOL/L (20-31); CHLORIDE LEVEL 97 MMOL/L (98-107); CREATININE FOR GFR 0.81 MG/DL (0.70-1.30); GLOMERULAR FILTRATION RATE > 60.0 (>60); GLUCOSE, FASTING 116 MG/DL (60-100); POTASSIUM SERUM 3.5 MMOL/L (3.5-5.1); SODIUM LEVEL 136 MMOL/L (136-145); TOTAL PROTEIN 7.2 G/DL (5.7-8.2)
[2022-07-20 21:16] LABS: HEMOGLOBIN A1c 6.8 % (4.0-6.0)
== END ==
LOC: M PLALAB 15:37
PROVIDERS: ATTEND Nurse Practitioner Adult Health
DX: E11.9 Type 2 diabetes mellitus without complications (principal)

== ENCOUNTER → 2022-11-16 | Outpatient (CLI) | payer OTHER ==
[2022-11-16 11:52] LABS: ALKALINE PHOSPHATASE 72 U/L (46-116); ALT/SGPT 55 U/L (7.0-40); AST/SGOT 37 U/L (<34); BILIRUBIN,TOTAL 0.7 MG/DL (0.3-1.2); BLOOD UREA NITROGEN 15 MG/DL (9-23); CALCIUM LEVEL 9.8 MG/DL (8.5-10.1); CARBON DIOXIDE LEVEL 28 MMOL/L (20-31); CHLORIDE LEVEL 101 MMOL/L (98-107); CHOLESTEROL LEVEL 139 MG/DL (<200); CHOLESTEROL RISK RATIO 3.97 (<5); CREATININE FOR GFR 0.79 MG/DL (0.70-1.30); GLOMERULAR FILTRATION RATE > 60.0 (>60); GLUCOSE, FASTING 128 MG/DL (60-100); LDL CHOLESTEROL 59.6 MG/DL (<100); POTASSIUM SERUM 4.1 MMOL/L (3.5-5.1); SODIUM LEVEL 138 MMOL/L (136-145); TOTAL PROTEIN 7.1 G/DL (5.7-8.2); TRIGLYCERIDES LEVEL 222 MG/DL (<150)
[2022-11-16 13:04] LABS: HEMOGLOBIN A1c 7.4 % (4.0-6.0)
== END ==
LOC: M PLALAB 08:25
PROVIDERS: ATTEND Nurse Practitioner Adult Health
DX: E11.9 Type 2 diabetes mellitus without complications (principal)

== ENCOUNTER → 2023-05-12 | Outpatient (CLI) | payer OTHER ==
[2023-05-12 18:11] LABS: ALBUMIN 4.4 G/DL (3.2-5.2); ALKALINE PHOSPHATASE 87 U/L (46-116); ALT/SGPT 57 U/L (7.0-40); AST/SGOT 36 U/L (<34); BILIRUBIN,TOTAL 0.6 MG/DL (0.3-1.2); BLOOD UREA NITROGEN 18 MG/DL (9-23); CALCIUM LEVEL 10.6 MG/DL (8.5-10.1); CARBON DIOXIDE LEVEL 28 MMOL/L (20-31); CHLORIDE LEVEL 97 MMOL/L (98-107); CREATININE FOR GFR 0.89 MG/DL (0.70-1.30); GLOMERULAR FILTRATION RATE > 60.0 (>60); GLUCOSE, FASTING 160 MG/DL (60-100); POTASSIUM SERUM 3.9 MMOL/L (3.5-5.1); SODIUM LEVEL 136 MMOL/L (136-145); TOTAL PROTEIN 7.6 G/DL (5.7-8.2)
[2023-05-12 18:12] LABS: VITAMIN B12 LEVEL 712 PG/ML (211-911)
[2023-05-12 18:14] LABS: HEMOGLOBIN A1c 7.7 % (4.0-6.0)
== END ==
LOC: M PLALAB 15:55
PROVIDERS: ATTEND Nurse Practitioner Adult Health
DX: E11.9 Type 2 diabetes mellitus without complications (principal); E53.8 Deficiency of other specified B group vitamins

== ENCOUNTER → 2023-08-18 | Outpatient (CLI) | payer OTHER ==
[~2023-08-18] MED LIST changes: +IRBE150T27 PO; -IRBE150T7 PO
[2023-08-18 11:12] LABS: HEMOGLOBIN A1c 9.1 % (4.0-6.0)
[2023-08-18 11:15] LABS: ALBUMIN 4.2 G/DL (3.2-5.2); ALKALINE PHOSPHATASE 82 U/L (46-116); ALT/SGPT 68 U/L (7.0-40); AST/SGOT 41 U/L (<34); BILIRUBIN,TOTAL 0.7 MG/DL (0.3-1.2); BLOOD UREA NITROGEN 21 MG/DL (9-23); CALCIUM LEVEL 9.8 MG/DL (8.5-10.1); CARBON DIOXIDE LEVEL 29 MMOL/L (20-31); CHLORIDE LEVEL 100 MMOL/L (98-107); CHOLESTEROL LEVEL 148 MG/DL (<200); CHOLESTEROL RISK RATIO 4.49 (<5); CREATININE FOR GFR 0.74 MG/DL (0.70-1.30); GLOMERULAR FILTRATION RATE > 60.0 (>60); GLUCOSE, FASTING 271 MG/DL (60-100); HDL CHOLESTEROL 32.9 MG/DL (>40); LDL CHOLESTEROL 52.3 MG/DL (<100); NON-HDL-C 115.1 MG/DL; POTASSIUM SERUM 3.7 MMOL/L (3.5-5.1); SODIUM LEVEL 137 MMOL/L (136-145); TOTAL PROTEIN 7.2 G/DL (5.7-8.2); TRIGLYCERIDES LEVEL 314 MG/DL (<150)
[2023-08-18 11:16] LABS: VITAMIN B12 LEVEL 1234 PG/ML (211-911)
== END ==
LOC: M PLALAB 07:35
PROVIDERS: ATTEND Nurse Practitioner Adult Health
DX: E11.9 Type 2 diabetes mellitus without complications (principal); E78.2 Mixed hyperlipidemia; E53.8 Deficiency of other specified B group vitamins

== ENCOUNTER → 2023-11-22 | Outpatient (CLI) | payer OTHER ==
[2023-11-22 17:58] LABS: ALBUMIN 4.3 G/DL (3.2-5.2); ALKALINE PHOSPHATASE 86 U/L (46-116); ALT/SGPT 54 U/L (7.0-40); AST/SGOT 34 U/L (<34); BILIRUBIN,TOTAL 0.8 MG/DL (0.3-1.2); BLOOD UREA NITROGEN 22 MG/DL (9-23); CALCIUM LEVEL 10.2 MG/DL (8.5-10.1); CARBON DIOXIDE LEVEL 27 MMOL/L (20-31); CHLORIDE LEVEL 102 MMOL/L (98-107); CREATININE FOR GFR 0.82 MG/DL (0.70-1.30); GLOMERULAR FILTRATION RATE > 60.0 (>60); GLUCOSE, FASTING 110 MG/DL (60-100); POTASSIUM SERUM 3.4 MMOL/L (3.5-5.1); SODIUM LEVEL 139 MMOL/L (136-145); TOTAL PROTEIN 7.5 G/DL (5.7-8.2)
[2023-11-22 18:12] LABS: HEMOGLOBIN A1c 7.6 % (4.0-6.0)
== END ==
LOC: M PLALAB 16:38
PROVIDERS: ATTEND Nurse Practitioner Adult Health
DX: E11.9 Type 2 diabetes mellitus without complications (principal)

== ENCOUNTER → 2024-03-28 | Outpatient (CLI) | payer OTHER ==
[2024-03-28 19:32] LABS: HEMOGLOBIN A1c 7.1 % (4.0-6.0)
[2024-03-28 19:40] LABS: ALBUMIN 4.5 G/DL (3.2-5.2); ALKALINE PHOSPHATASE 80 U/L (46-116); ALT/SGPT 50 U/L (7.0-40); AMYLASE 65 U/L (30-118); AST/SGOT 35 U/L (<34); BILIRUBIN,TOTAL 0.7 MG/DL (0.3-1.2); BLOOD UREA NITROGEN 18 MG/DL (9-23); CALCIUM LEVEL 10.3 MG/DL (8.5-10.1); CARBON DIOXIDE LEVEL 28 MMOL/L (20-31); CHLORIDE LEVEL 102 MMOL/L (98-107); CREATININE FOR GFR 0.88 MG/DL (0.70-1.30); GLOMERULAR FILTRATION RATE > 60.0 (>60); GLUCOSE, FASTING 107 MG/DL (60-100); POTASSIUM SERUM 3.2 MMOL/L (3.5-5.1); SODIUM LEVEL 139 MMOL/L (136-145); TOTAL PROTEIN 7.6 G/DL (5.7-8.2)
[2024-03-28 19:41] LABS: THYROID STIMULATING HORMONE 1.717 uIU/ML (0.55-4.78)
== END ==
LOC: M PLALAB 16:14
PROVIDERS: ATTEND Nurse Practitioner Adult Health
DX: E11.9 Type 2 diabetes mellitus without complications (principal); I10 Essential (primary) hypertension

== ENCOUNTER → 2025-01-24 | Outpatient (CLI) | payer OTHER ==
[~2025-01-24] MED LIST changes: +GLIP-318 PO; -GLIP5TAB20 PO
[2025-01-24 11:31] LABS: CHOLESTEROL LEVEL 144.0 MG/DL (<200); CHOLESTEROL RISK RATIO 4.09 (<5); LDL CHOLESTEROL 69.8 MG/DL (<100); NON-HDL-C 108.8 MG/DL; TRIGLYCERIDES LEVEL 195.0 MG/DL (<150)
[2025-01-24 11:33] LABS: FREE T4 1.08 NG/DL (0.89-1.76); VITAMIN B12 LEVEL 723.0 PG/ML (211-911)
[2025-01-24 11:57] LABS: ESTIMATED AVERAGE GLUCOSE 169.0 MG/DL (60-110)
== END ==
LOC: M PLALAB 07:18
PROVIDERS: ATTEND Nurse Practitioner Adult Health
DX: I10 Essential (primary) hypertension (principal); E11.9 Type 2 diabetes mellitus without complications; E78.2 Mixed hyperlipidemia; E53.8 Deficiency of other specified B group vitamins